=== PATIENT | female | born 1980 | race Caucasian/White ===

== ENCOUNTER 2018-12-13 13:54 | Emergency (ER) | payer MEDICAID, OTHER ==
[~2018-12-13] VITALS: Ht 160 cm; Wt 80.2 kg
[~2018-12-13 13:54] MED LIST: CIPR500T4 PO; NAPR-985 PO; PROM25TA14 PO
[2018-12-13 13:58] VITALS: BP 141/77; PULSE 80; RESP 20; Ht 160 cm; Wt 80.2 kg
--- NOTE | 2018-12-13 15:02 | ERD ---
ER Documentation Chief Complaint Chief Complaint R pelvic pain x 3 days; LMP 11/27 HPI 38-year-old female with no significant past medical s/p tubal ligation 2011 who presents with 3-day complaint of right-sided pelvic pain. Describes pain as dull pain localized to the lower right pelvic area. She denies any upper abdominal pain, nausea or vomiting, urinary symptoms, vaginal discharge or bleeding. Last menstrual period was November 27 and reported as normal. She has a history of constipation but states that she been moving her bowels as recently as yesterday and passing gas. She tried Tylenol which did not help her pain much last dose yesterday. She otherwise is without complaint. She is sexually active with one partner denies any history of STI's. No family history of cancer. ROS All systems reviewed and are negative except as per history of present illness. Medications Home Meds Active Scripts Ibuprofen* (Motrin*) 600 Mg Tab, 600 MG PO Q6, #30 TAB Prov:GERMAN HARDEN PA-C 12/13/18 Naproxen* (Naprosyn*) 500 Mg Tablet, 500 MG PO BID PRN for PAIN AND/OR INFLAMMATION, #30 TAB Prov:GERMAN HARDEN PA-C 12/13/18 Naproxen* (Naprosyn*) 500 Mg Tablet, 500 MG PO BID PRN for PAIN AND/OR INFLAMMATION, #30 TAB Prov:KARELY DOW PA-C 06/09/16 Promethazine Hcl* (Phenergan*) 25 Mg Tablet, 12.5 MG PO Q6 PRN for NAUSEA AND/OR VOMITING, #10 TAB Prov:CHRISTI CUADRA MD 05/25/15 Ciprofloxacin Hcl* (Ciprofloxacin Hcl*) 500 Mg Tablet, 500 MG PO BID for 10 Days, TAB Prov:CHRISTI CUADRA MD 05/25/15 Allergies Allergies: Coded Allergies: acetaminophen (Verified Allergy, Unknown, 12/08/14) skin rash PMhx/Soc History of Surgery: Yes ( x2) Anesthesia Reaction: No Hx Neurological Disorder: No Hx Respiratory Disorders: No Hx Cardiac Disorders: No Hx Psychiatric Problems: No Hx Miscellaneous Medical Probl: No Hx Alcohol Use: No Hx Substance Use: No Hx Tobacco Use: No FmHx Family History: No diabetes, No coronary disease, No other Physical Exam Vitals Vital Signs Date Temp Pulse Resp B/P (MAP) Pulse Ox O2 O2 Flow FiO2 Time Delivery Rate 12/13/18 98.9 80 20 141/77 100 13:58 (98) Physical Exam I have reviewed the triage vital signs. Const: Well nourished, well developed, appears stated age, NAD Eyes: PERRL, no conjunctival injection HENT: NCAT, Neck supple without meningismus CV: RRR, Warm, well-perfused extremities RESP: CTAB, Unlabored respiratory effort GI: soft, tender to R iliac region, no rebound or guarding, non-distended, no masses, no flank tenderness MSK: No gross deformities appreciated Skin: Warm, dry. No rashes Neuro: Alert,grossly intact Psych: Appropriate mood and affect. Results 24 hrs Laboratory Tests Test 12/13/18 15:36 12/13/18 15:37 Urine Color YELLOW Urine Clarity CLEAR Urine pH 7.0 Urine Specific [place] 1.008 Urine Ketones NEGATIVE mg/dL Urine Nitrite NEGATIVE mg/dL Urine Bilirubin NEGATIVE mg/dL Urine Urobilinogen NEGATIVE mg/dL Urine Leukocyte Esterase NEGATIVE Joe/ul Urine Hemoglobin NEGATIVE mg/dL Urine Glucose NEGATIVE mg/dL Urine Total Protein NEGATIVE mg/dl POC Beta HCG, Qualitative NEGATIVE Current Medications Medications Dose Sig/Kavitha Start Time Status Last (Trade) Ordered Route PRN Stop Time Admin Dose Reason Admin Ketorolac 30 mg ONCE STAT 12/13/18 DC 12/13/18 Tromethamine IM 15:15 16:01 (Toradol) 12/13/18 15:19 Procedures/MDM This patient presents with pelvic pain of unclear etiology. Their evaluation has not identified a emergent etiology for the pelvic pain. Specifically, given the very benign exam,and lack of significant risk factors, I have a very low suspicion for appendicitis, ischemic bowel, bowel perforation, or any other life threatening disease. I have discussed with the patient the level of uncertainty with undifferentiated pelvic pain and clearly explained the need to follow-up as noted on the discharge instructions, or return to the Emergency Department immediately if the pain worsens, develops fever, persistent and uncontrollable vomiting, or for any new symptoms or concerns. I discussed with the patient that this presentation today for abdominal pain could represent a significant risk for an acute a bdominal process. Although the tests in the ED were essentially normal, there is still a possibility of a process such as BPM ANALYST malignancy, appendicitis, diverticulitis, cholecystitis, ulcer, early bowel obstruction, mesenteric ischemia, kidney stone, or even kidney infection which could subsequently cause disability or . The patient understands that they must return within 24 h ours for a recheck or see their physician within 24 hours for re-exam due to the possibility of significant surgical or medical process ED course: US with small fibroids otherwise wnl findings, UA negative, test negative, sumptoms improved with pain Rx Discharge home with pain medications and PMD follow up and strict return precautions. Patient's symptoms have stabilized while in the department. No evidence of severe dehydration, sepsis, or surgical abdomen. Extensive discussion with family and patient that occult disease cannot be ruled out. She had been instructed follow-up with PMD and obtain necessary referral to [facility] for further evaluation. Departure Diagnosis: Primary Impression: Acute pain in female pelvis Condition: Stable GERMAN HARDEN PA-C Dec 13, 2018 15:02
[2018-12-13] MEDS ORDERED: KETOROLAC 30 MG INJ IM STA (15:15)
[2018-12-13] MEDS ORDERED: IBUP-1542 PO (16:29)
[2018-12-13] MEDS ORDERED: NAPR-985 PO (16:29)
== END 2018-12-13 17:00 | disposition home or self-care (01) ==
LOC: FTE 13:54
DX: R10.2 Pelvic and perineal pain (principal)
CPT/HCPCS: 76830; 76856; 81003; 81025; 96372; J1885; Z7502